=== PATIENT | male | born 1975 | race Caucasian/White ===

== ENCOUNTER 2022-04-06 01:49 | Emergency (ER) | payer OTHER ==
[~2022-04-06] VITALS: Ht 180.3 cm; Wt 94.5 kg
[2022-04-06 01:58] VITALS: BP 134/94
[2022-04-06 02:00] VITALS: BP 123/85
[2022-04-06] MEDS ORDERED: DICLOFENAC SODIUM1 % (02:09)
[2022-04-06] MEDS ORDERED: LIPITOR80 M1 PO (02:09)
[2022-04-06] MEDS ORDERED: GLIPIZIDE ER5 MG PO (02:10)
[2022-04-06] MEDS ORDERED: METFORMIN HCL1000 MG PO (02:11)
[2022-04-06] MEDS ORDERED: ESCITALOPRAM OX10 MG PO (02:11)
[2022-04-06 02:15] VITALS: BP 125/86
[2022-04-06] MEDS ORDERED: PEPCID20 MG PO (02:26)
[2022-04-06] MEDS ORDERED: VISTARIL25 MG PO (02:26)
[2022-04-06] MEDS ORDERED: PREDNISONE20 MG PO (02:26)
[2022-04-06 02:30] VITALS: BP 125/86
[2022-04-06 02:45] VITALS: BP 126/82
[2022-04-06 03:00] VITALS: BP 128/86
== END 2022-04-06 03:07 | disposition home or self-care (01) | DRG 125 ==
LOC: ED 01:49
DX: H01.135 Eczematous dermatitis of left lower eyelid (principal); H01.134 Eczematous dermatitis of left upper eyelid; H01.132 Eczematous dermatitis of right lower eyelid; H01.131 Eczematous dermatitis of right upper eyelid

== ENCOUNTER 2022-10-23 17:28 | Emergency (ER) | payer OTHER ==
[~2022-10-23] VITALS: Ht 180.3 cm; Wt 95.3 kg
[~2022-10-23 17:28] MED LIST: DICLOFENAC SODIUM1 %; ESCITALOPRAM OX10 MG PO; GLIPIZIDE ER5 MG PO; LIPITOR80 M1 PO; METFORMIN HCL1000 MG PO; PEPCID20 MG PO; PREDNISONE20 MG PO; VISTARIL25 MG PO
[2022-10-23 19:01] VITALS: BP 120/74
[2022-10-23 19:15] VITALS: BP 122/73
[2022-10-23 19:31] VITALS: BP 101/50
[2022-10-23 19:46] VITALS: BP 129/75
[2022-10-23 20:04] VITALS: BP 129/75
== END 2022-10-23 20:04 | disposition home or self-care (01) | DRG 204 ==
LOC: ED 17:28
DX: R07.81 Pleurodynia (principal); E11.9 Type 2 diabetes mellitus without complications; E78.00 Pure hypercholesterolemia, unspecified; F32.A Depression, unspecified; Z79.84 Long term (current) use of oral hypoglycemic drugs

== ENCOUNTER 2023-08-17 17:35 | Emergency (ER) | payer OTHER ==
[~2023-08-17] VITALS: Ht 180.3 cm; Wt 90.0 kg
[2023-08-17 20:05] VITALS: BP 135/85
[2023-08-17 20:15] VITALS: BP 139/91
[2023-08-17 20:30] VITALS: BP 133/78
[2023-08-17] MEDS ORDERED: METHOCARBAMOL 500 MG/TAB PO ONE (20:30)
[2023-08-17] MEDS ORDERED: methylPREDNISolone SODIUM SUCC 125 MG/2 ML SDV IM ONE (20:30)
[2023-08-17] MEDS ORDERED: KETOROLAC TROMETHAMINE 30 MG/ML SDV IM ONE (20:30)
[2023-08-17] MEDS ORDERED: MELOXICAM7.5 MG PO (20:35)
[2023-08-17] MEDS ORDERED: MEDDOSEPAK PO (20:35)
[2023-08-17] MEDS ORDERED: METHOCARBAMOL500 MG PO (20:35)
[2023-08-17 20:39] VITALS: BP 133/78
[2023-08-18] MEDS ORDERED: METHOCARBAMOL500 MG PO (14:49)
[2023-08-18] MEDS ORDERED: MEDDOSEPAK PO (14:49)
== END 2023-08-17 20:48 | disposition home or self-care (01) | DRG 552 ==
LOC: ED 17:35
DX: M62.830 Muscle spasm of back (principal); E11.9 Type 2 diabetes mellitus without complications; E78.00 Pure hypercholesterolemia, unspecified; F32.A Depression, unspecified; Z79.84 Long term (current) use of oral hypoglycemic drugs